=== PATIENT | female | born 1975 ===

== ENCOUNTER 2023-09-17 11:44 | Day surgery (SDC) | payer OTHER ==
[2023-09-13 11:37] VITALS: BMI 48.1
[2023-09-17] MEDS ORDERED: PROPOFOL 20 ML ONE ×3 (14:31→14:47)
[2023-09-17] MEDS ORDERED: Lidocaine 1% PF 5 ML VIAL ONE (14:47)
== END 2023-09-17 15:30 | disposition home or self-care (01) ==
LOC: CSHSDC 11:44
PROVIDERS: ATTEND Internal Medicine Gastroenterology
PROC: 0DJD8ZZ Inspection of Lower Intestinal Tract, Via Natural or Artificial Opening Endoscopic (ICD-10-PCS; principal; 2023-09-17)
DX: Z12.11 Encounter for screening for malignant neoplasm of colon (principal); K64.9 Unspecified hemorrhoids; E66.9 Obesity, unspecified; E03.9 Hypothyroidism, unspecified; G47.33 Obstructive sleep apnea (adult) (pediatric); F41.9 Anxiety disorder, unspecified; F32.9 Major depressive disorder, single episode, unspecified; Z80.0 Family history of malignant neoplasm of digestive organs; Z68.42 Body mass index [BMI] 45.0-49.9, adult; Z79.899 Other long term (current) drug therapy
CPT/HCPCS: J2704